=== PATIENT | male | born 1970 | race African-American/Black ===

== ENCOUNTER 2022-03-21 18:57 | Emergency (ER) | payer SELFPAY ==
--- NOTE | 2022-03-21 21:40 | NUR ---
PATIENT WAS JUST CALLED AT THIS TIME FOR RE CHECK OF VITAL SIGNS DUE TO NO BEDS AVAILABLE, SHORT STAFF AND HOLDING 3 ICU NURSE. BUT PATIENT WAS NOT PRESENT IN THE WAITING ROOM OR OUTSIDE OF ER.
--- NOTE | 2022-03-21 22:00 | NUR ---
PATIENT WAS CALLED TO BE TRIAGED BUT WAS NOT PRESENT IN THE WAITING ROOM OR OUTSIDE OF ER. PATIENT WAS NOT SEEN BY ERMD OR TRIAGED.
== END 2022-03-21 22:41 | disposition left against medical advice (07) ==
LOC: ER 19:02
DX: Z53.21 Procedure and treatment not carried out due to patient leaving prior to being seen by health care provider (principal)

== ENCOUNTER 2023-03-10 18:34 | Emergency (ER) | payer MEDICAID ==
[~2023-03-10] VITALS: Ht 177.8 cm; Wt 68.0 kg
[2023-03-10] MEDS ORDERED: TDAP DIPH,PERTUSS,TET VAC/PF 0.5 ML DISP.SYRIN IM ONE ×2 (19:14→19:15)
[2023-03-10] MEDS ORDERED: KETOROLAC TROMETHAMINE 30 MG INJ ONE (19:14)
[2023-03-10] MEDS ORDERED: SILVER SULFADIAZINE 1% CREAM 50 GM TP ONE ×2 (19:14→19:15)
[2023-03-10] MEDS ORDERED: KETOROLAC TROMETHAMINE 30 MG INJ IM ONE (19:15)
[2023-03-10] MEDS ORDERED: NAPR-1192 PO ×2 (19:24→19:26)
[2023-03-10 19:35] VITALS: BP 121/76; O2SAT 98
== END 2023-03-10 19:35 | disposition home or self-care (01) ==
LOC: ER 18:36
DX: T23.201A Burn of second degree of right hand, unspecified site, initial encounter (principal); Z79.899 Other long term (current) drug therapy; X10.2XXA Contact with fats and cooking oils, initial encounter; Y93.89 Activity, other specified; Y92.89 Other specified places as the place of occurrence of the external cause; Y99.8 Other external cause status
CPT/HCPCS: 99284; 90715; 16020; 90471; 96372; J1885; A4606; A4663